=== PATIENT | female | born 1960 | race Caucasian/White ===

== ENCOUNTER → 2016-06-15 | Outpatient (CLI) | payer BC | END | disposition home or self-care (01) | LOC: C.MAMM 07:57 | PROVIDERS: ATTEND Family Medicine | DX: Z78.0 Asymptomatic menopausal state (principal); M54.2 Cervicalgia ==

== ENCOUNTER → 2016-08-13 | Outpatient (CLI) | payer BC ==
--- NOTE | 2016-08-13 16:02 | MAMMOGRAPHY REPORT ---
BILATERAL DIGITAL SCREENING MAMMOGRAM TOMOSYNTHESIS WITH CAD: 08/13/2016 CLINICAL HISTORY: Routine screening. Patient has no complaints. TECHNIQUE: Breast tomosynthesis in addition to standard 2D mammography was performed. Current study was also evaluated with a Computer Aided Detection (CAD) system. COMPARISON: Comparison is made to exams dated: 06/30/2015 mammogram, 06/27/2014 mammogram, 04/07/2011 mammogram, 04/25/2012 mammogram, 10/05/2010 mammogram, and 09/23/2010 mammogram - [facility]. BREAST COMPOSITION: The tissue of both breasts is heterogeneously dense, which may obscure small ma sses. FINDINGS: No suspicious masses, calcifications, or areas of architectural distortion are noted in e ither breast. There has been no significant interval change compared to prior exams. Oval 6 mm mass in the right upper outer quadrant posteriorly is stable on cc views compared to the 2014 exam, and stable on MLO views compared to the 2015 and 2008 exams. IMPRESSION: ACR BI-RADS CATEGORY 2: BENIGN There is no mammographic evidence of malignancy. A 1 year screening mammogram is recommended. The p atient will receive written notification of the results. Approximately 10% of breast cancers are not detected with mammography. A negative mammographic repor t should not delay biopsy if a clinically suggestive mass is present. Radha Yang M.D. /:08/13/2016 14:54:47 Insulation Estimator: Miriam Sierra [facility] letter sent: Normal 1/2 BI-RADS Code: ACR BI-RADS Category 2: Benign
== END | disposition home or self-care (01) ==
LOC: C.MAMM 11:53
PROVIDERS: ATTEND Obstetrics & Gynecology
DX: Z12.31 Encounter for screening mammogram for malignant neoplasm of breast (principal)

== ENCOUNTER → 2016-10-11 | Outpatient (CLI) | payer BC ==
--- NOTE | 2016-10-11 10:03 | DIAGNOSTIC IMAGING REPORT ---
PELVIC ULTRASOUND, TRANSABDOMINAL AND TRANSVAGINAL HISTORY: ABDOMINAL DISTENSION COMPARISON: Abdomen and pelvis CT 05/25/2012. FINDINGS: The uterus is surgically absent. The ovaries were not visualized and may also be surgically absent. No pelvic masses or pelvic fluid. IMPRESSION: No significant abnormality identified within the pelvis. Of note, the uterus is surgically absent and the ovaries were not visualized and may also be surgically absent. Electronically signed by: Andrez Servin M.D. 10/11/2016 10:02 AM Dictated Date/Time: 10/11/2016 10:00 AM
== END | disposition home or self-care (01) ==
LOC: C.ULTR 09:13
PROVIDERS: ATTEND Family Medicine
DX: R14.0 Abdominal distension (gaseous) (principal)

== ENCOUNTER → 2016-11-12 | Outpatient (CLI) | payer BC | END | disposition home or self-care (01) | LOC: C.PAPS 10:50 | PROVIDERS: ATTEND Obstetrics & Gynecology | DX: Z01.419 Encounter for gynecological examination (general) (routine) without abnormal findings (principal) ==

== ENCOUNTER → 2017-08-16 | Outpatient (CLI) | payer OTHER ==
--- NOTE | 2017-08-16 15:12 | MAMMOGRAPHY REPORT ---
BILATERAL DIGITAL SCREENING MAMMOGRAM TOMOSYNTHESIS WITH CAD: 08/16/2017 CLINICAL HISTORY: Routine screening. Patient has no complaints. TECHNIQUE: Breast tomosynthesis in addition to standard 2D mammography was performed. Current study was also evaluated with a Computer Aided Detection (CAD) system. COMPARISON: Comparison is made to exams dated: 08/13/2016 mammogram, 06/30/2015 mammogram, 06/27/2014 m ammogram, 04/25/2012 mammogram, 04/07/2011 mammogram, and 10/05/2010 mammogram - [facility]. BREAST COMPOSITION: The tissue of both breasts is heterogeneously dense, which may obscure small mas ses. FINDINGS: There is a 5 mm nodular asymmetry in the lateral posterior right breast, within the retrog landular fat, only seen in the CC projection (CC tomosynthesis slice 34/52). Additional spot compre ssion tomosynthesis views and possible ultrasound are recommended. No other suspicious mass, architectural distortion or cluster of microcalcifications is seen bilatera lly. IMPRESSION: ACR BI-RADS CATEGORY 0: INCOMPLETE EVALUATION: NEED ADDITIONAL IMAGING EVALUATION The 5 mm nodular asymmetry in the lateral, posterior right breast needs additional evaluation. The patient will be called to schedule an appointment. Approximately 10% of breast cancers are not detected with mammography. A negative mammographic report should not delay biopsy if a clinically suggestive mass is present. Monique Berger M.D. ay/:08/16/2017 14:03:13 Natural Fabricator: Miriam HARRISON(Carrie)([place]), [facility] letter sent: Addl Imaging 0 BI-RADS Code: ACR BI-RADS Category 0: Incomplete Evaluation: Need Additional Imaging Evaluation
== END | disposition home or self-care (01) ==
LOC: C.MAMM 10:27
PROVIDERS: ATTEND Family Medicine
DX: Z12.31 Encounter for screening mammogram for malignant neoplasm of breast (principal); N64.89 Other specified disorders of breast

== ENCOUNTER → 2017-08-25 | Outpatient (CLI) | payer OTHER ==
--- NOTE | 2017-08-25 15:08 | MAMMOGRAPHY REPORT ---
UNILATERAL RIGHT DIGITAL DIAGNOSTIC MAMMOGRAM TOMOSYNTHESIS AND TARGETED RIGHT ULTRASOUND: 08/25/2017 CLINICAL HISTORY: Callback from screening mammogram for right breast asymmetry. TECHNIQUE: Breast tomosynthesis in addition to standard 2D mammography was performed. Spot compress ion right CC and MLO 2D and tomosynthesis images were obtained. COMPARISON: Comparison is made to exams dated: 08/16/2017 mammogram, 08/13/2016 mammogram, 06/30/2015 m ammogram, 06/27/2014 mammogram, 04/25/2012 mammogram, and 04/07/2011 mammogram - [facility]. Prior breast MRI dated 05/08/2012 and 05/13/2011. BREAST COMPOSITION: The tissue of the right breast is heterogeneously dense, which may obscure small masses. FINDINGS: Spot compression views of the right breast demonstrate a persistent small mixed density 6 m m mass within the right lateral posterior breast, with correlate seen within the right superior breas t on the tomosynthesis images. The mass is stable in size compared to prior mammograms including and 2014 cc views. Additionally, the mass is also stable in size compared to prior breast MRI from 2011, where the mass is shown to be T2 hyperintense and nonenhancing and has the appearance of a cys t cluster. Targeted ultrasound was performed of the right upper outer quadrant in the region of the mammographic mass. In the right breast at 11:00, 8 cm from the nipple, there is a circumscribed anechoic mass wi th multiple thin internal septations measuring 5 x 5 x 4 mm. This corresponds with the mammographic mass and has the appearance of a microcystic cluster on ultrasound and MRI. Given the long-term stab ility and given the benign features, the mass is considered benign. IMPRESSION: ACR BI-RADS CATEGORY 2: BENIGN, TARGETED ULTRASOUND ACR BI-RADS CATEGORY 2: BENIGN The mammographic mass in the right upper outer quadrant is stable compared to multiple prior exams in cluding a breast MRI from 2011, and has the appearance of a microcyst cluster on ultrasound and MRI a nd is considered benign. There is no mammographic or targeted sonographic evidence of malignancy. A 1 year screening mammogram is recommended. The patient has been verbally notified of the results. Approximately 10% of breast cancers are not detected with mammography. A negative mammographic report should not delay biopsy if a clinically suggestive mass is present. Radha Yang M.D. ah/:08/25/2017 12:16:18 Franchise Sales Representative: Gordon HARRISON(Carrie)(M), [facility] letter sent: Normal 1/2 BI-RADS Code: ACR BI-RADS Category 2: Benign Ultrasound BI-RADS: ACR BI-RADS Category 2: Benign
== END | disposition home or self-care (01) ==
LOC: C.MAMM 08:44
PROVIDERS: ATTEND Family Medicine
DX: N64.9 Disorder of breast, unspecified (principal); N63.11 Unspecified lump in the right breast, upper outer quadrant

== ENCOUNTER → 2017-10-06 | Outpatient (CLI) | payer OTHER ==
--- NOTE | 2017-10-06 11:28 | PULMONARY FUNCTION TEST ---
Pre-bronchodilator spirometry is well within normal limits. There was no significant response to bronchodilator, but this should not preclude a therapeutic trial if clinically warranted. Lung volumes and diffusion capacity were not measured. Clinical correlation is needed.
== END | disposition home or self-care (01) ==
LOC: C.RC 09:02
PROVIDERS: ATTEND Family Medicine
DX: R06.02 Shortness of breath (principal)

== ENCOUNTER 2018-01-14 19:52 | Emergency (ER) | payer OTHER ==
[~2018-01-14] VITALS: Ht 167.6 cm; Wt 67.1 kg
[2018-01-14 19:54] VITALS: TEMP 36.9; Ht 167.6 cm; Wt 67.1 kg
[2018-01-14] MEDS ORDERED: LIDOCAINE 1% BUFFERED INJ 20 ML VIAL INFIL ONE (20:15)
[2018-01-14] MEDS ORDERED: AMOXICIL/CLAVU 875MG HOME PACK PO ONE (20:15)
[2018-01-14] MEDS ORDERED: RABIES IMMUNE GLOBULIN (HUMAN) 150 INTER.UNIT/ML 2 ML VIAL IM. ONE (20:15)
[2018-01-14] MEDS ORDERED: RABIES VACCINE (IMOVAX) HUMAN DIPL CELL 2.5 INTER.UNIT/ML SYR IM. ONE (20:15)
[2018-01-14] MEDS ORDERED: AMOX875T PO (21:22)
[2018-01-14 21:31] VITALS: BP 132/92; PULSE 63; O2SAT 93
--- NOTE | 2018-01-14 23:18 | EMERGENCY ROOM VISIT NOTE ---
History First contact with patient: 19:59 Chief Complaint: BITE Stated Complaint: DOG BITE History of Present Illness The patient is a 57 year old female who presents to the Emergency Room with complaints of a laceration to her left forearm from a dog bite. The patient reports that she was walking her dog at approximately 5:30 PM when she was bitten by a stray dog. She reports that the stray dog got into a fight with her dog. As she was attempting to separate them, she was bitten. The bite happened in her neighborhood. She is not familiar, nor has she seen this dog in the past. There was no other people around at the time. She did not see where the dog went on the adjacent properties. She sent a picture of the wound to her family doctor, and was instructed to come to the emergency department for laceration repair and to discuss the rabies immunization series. The patient rates her discomfort a 6 out of 10. She reports that her tetanus immunization is up-to-date. The patient is right-hand dominant. Review of Systems 10 system review was performed and was negative except for pertinent positives and negatives as indicated in history of present illness Past Medical/Surgical History Medical Problems: (1) Anxiety (2) Calculus Of Ureter (3) Celiac disease (4) Packer Operator Automatic Demyelination Nos (5) Thyroiditis Nos (6) Vitamin D Deficiency Nos Family History FH: diabetes mellitus FH: heart disease Social History Smoking Status: Never Smoker Alcohol Use: none Marital Status: Housing Status: lives with family Occupation Status: employed Current/Historical Medications Scheduled Amoxicillin & Pot Clavulanate (Augmentin 875-125 mg), 1 TAB PO BID Physical Exam Vital Signs Date Time Temp Pulse Resp B/P (MAP) Pulse Ox O2 Delivery O2 Flow Rate FiO2 01/14/18 21:31 63 18 132/92 93 01/14/18 19:54 36.9 72 20 153/88 96 Room Air Physical Exam CONSTITUTIONAL: Healthy and well nourished. Alert and oriented X 3 with positive affect. Patient does not appear in any acute distress. HEENT: Normocephalic, atraumatic. Pupils equal, round and reactive. NECK: Full active range of motion without discomfort. RESPIRATORY: Clear to auscultation bilaterally with no wheezing, crackles, rhonchi or stridor. CARDIOVASCULAR: Regular rate and rhythm with no murmurs, rubs or gallops. MUSCULOSKELETAL: Examination of the left distal forearm shows a linear 3 cm laceration that is gaping and with fat extrusion. No active bleeding or hematoma formation. Patient is able to flex and extend the wrist without discomfort in the forearm. Distal pulses are intact. INTEGUMENTARY: No rash or other significant dermatologic conditions noted. NEUROLOGIC: Left hand and fingers are sensory intact. Medical Decision & Procedures Medications Administered Medications (Trade) Dose Ordered Sig/Ian Route Start Time Stop Time Status Last Admin Dose Admin Amoxicillin/ Clavulanate Potassium (Augmentin 875MG Home Pack) 1 homepack UD ONCE PO 01/14/18 20:15 01/14/18 20:16 DC 01/14/18 20:49 1 HOMEPACK Rabies Vaccine Human Diploid Cell (Imovax Rabies) 2.5 interunit ONCE ONCE IM. 01/14/18 20:15 01/14/18 20:16 DC 01/14/18 20:51 2.5 INTERUNIT Rabies Immune Globulin (Imogam Rabies Inj) 1,342 interunit ONCE ONCE IM. 01/14/18 20:15 01/14/18 20:16 DC 01/14/18 20:52 1,342 INTERUNIT Procedure Laceration repair was performed under local anesthesia after receiving verbal consent from the patient. Using buffered 1% lidocaine without epinephrine, good local anesthesia was administered. The peripheral tissue was then cleansed with iodine, then the wound was irrigated with approximately 100 cc of normal saline. Expiration of the wound does not show any involvement of the underlying musculature or tendons. The wound was then approximated using 4-0 nylon simple interrupted sutures 3. I did inject approximately 2 mL of human rabies immunoglobulin peripherally around the wound. ED Course Patient history and physical exam were performed. Nurse's notes were reviewed. Vital signs were reviewed and were normal. Laceration repair of the left forearm was performed under local anesthesia. 2 mL of human rabies immunoglobulin was also administered peripherally in the wound. The patient was also administered the remaining balance of HRIG and Imovax without adverse reaction. The patient was provided a home pack and prescription for Augmentin. She was instructed to return on days 3, 7 and 14 for subsequent Imovax injections. She was instructed to remind staff that her sutures need to be removed when she returns in 2 weeks. She was provided additional verbal and written wound care instructions. The patient was happy with plan of care, voiced understanding of all discharge instructions, refused any analgesics while in the emergency department, and rated her discomfort a 3 out of 10 at the time of discharge. Medical Decision Medication Reconcilliation Current Medication List: was personally reviewed by me Blood Pressure Screening Patient's blood pressure: Normal blood pressure Impression Primary Impression: Laceration of left forearm Additional Impressions: Dog bite of left arm Rabies, need for prophylactic vaccination against Departure Information Prescriptions Amoxicillin & Pot Clavulanate (Augmentin 875-125 mg) 1 Tab Tab 1 TAB PO BID for 5 Days, #10 TAB Prov: Jovany Lowry PA 01/14/18 Referrals Larissa Aguila D.O. (PCP) Patient Instructions Community Health Problem Qualifiers Primary Impression: Laceration of left forearm Encounter type: initial encounter Qualified Codes: S51.812A - Laceration without foreign body of left forearm, initial encounter Additional Impressions: Dog bite of left arm Encounter type: initial encounter Qualified Codes: S41.152A - Open bite of left upper arm, initial encounter; W54.0XXA - Bitten by dog, initial encounter
== END 2018-01-14 21:32 | disposition home or self-care (01) ==
LOC: C.EDB 19:53 → C.EDD 21:32
DX: S51.812A Laceration without foreign body of left forearm, initial encounter (principal); Z20.3 Contact with and (suspected) exposure to rabies; Z23 Encounter for immunization; W54.0XXA Bitten by dog, initial encounter; Y93.K1 Activity, walking an animal